=== PATIENT | male | born 1960 | race Caucasian/White ===

== ENCOUNTER 2017-11-10 12:38 | Emergency (ER) | payer MEDICARE ==
[2016-02-20 23:53] VITALS: BMI 22.7
[~2017-11-10 12:38] MED LIST: ASPIRIN325 MG PO; CRESTOR10 MG PO; PERCOCET 10/3251 TA1 PO
== END 2017-11-10 14:02 | disposition home or self-care (01) ==
LOC: D.ER 12:38
DX: S69.91XA Unspecified injury of right wrist, hand and finger(s), initial encounter (principal); X58.XXXA Exposure to other specified factors, initial encounter; Y93.89 Activity, other specified; Y92.89 Other specified places as the place of occurrence of the external cause; S61.101A Unspecified open wound of right thumb with damage to nail, initial encounter; F17.200 Nicotine dependence, unspecified, uncomplicated